=== PATIENT | male | born 1955 | race Caucasian/White ===

== ENCOUNTER 2017-08-08 11:15 | Inpatient (IN) | payer OTHER ==
[2017-08-05 15:10] LABS: WBC (NOT ORDERED) (RFLEX) 0 (0-5)
[2017-08-05 16:12] LABS: BASOPHILS 0.4 %; BASOPHILS ABSOLUTE 0.03 10/3/uL (0.0-0.16); EOSINOPHILS 2.4 %; EOSINOPHILS ABSOLUTE 0.19 10/3/uL (0.0-0.53); HEMOGLOBIN 14.8 g/dL (13.6-17.8); IMMATURE GRANULOCYTES 0.3 %; IMMATURE GRANULOCYTES ABSOLUTE 0.02 10/3/uL (0.0-0.11); LYMPHOCYTES 15.7 %; LYMPHOCYTES ABSOLUTE 1.22 10/3/uL (0.67-4.30); MEAN CORPUS HGB CONC 33.9 g/dL (32.0-36.0); MEAN CORPUSCULAR HEMOGLOB 30.1 pg (26.0-34.0); MEAN CORPUSCULAR VOLUME 88.6 fL (80-100); MEAN PLATELET VOLUME 10.3 fL (9.2-13.0); MONOCYTES 8.1 %; MONOCYTES ABSOLUTE 0.63 10/3/uL (0.21-1.20); NEUTROPHILS 73.1 %; NEUTROPHILS ABSOLUTE 5.68 10/3/uL (2.02-8.40); PLATELET COUNT 239 10/3/uL (150-400); RBC DISTRIBUTION WIDTH 13.1 % (12.0-16.0); RED CELL COUNT 4.92 10/6/uL (4.7-6.1); WHITE BLOOD CELLS 7.8 10/3/uL (4.5-10.5)
[2017-08-05 16:14] LABS: HEMATOCRIT 43.6 % (40.0-51.0); MANUAL DIFF NO %
[2017-08-05 16:26] LABS: BUN (BLOOD UREA NITROGEN) 18 MG/DL (6-23); CALCIUM, SERUM 8.5 MG/DL (8.5-10.4); CHLORIDE, SERUM 102 MMOL/L (96-112); CO2 (CARBON DIOXIDE) 29 MMOL/L (24-34); CREATININE 0.94 MG/DL (0.70-1.30); GFR AFRICAN AMERICAN 102 ML/MIN (>=60); GFR NON AFRICAN AMERICAN 88 ML/MIN (>=60); POTASSIUM, SERUM 4.1 MMOL/L (3.5-5.3); SODIUM, SERUM 137 MMOL/L (135-148)
[2017-08-05 16:27] LABS: GLUCOSE, SERUM 155 MG/DL (60-99)
[2017-08-05 16:49] LABS: ASCORBIC ACID (UR NOT ORDER) NEG (NEG); BILIRUBIN, URINE NEGATIVE (NEG); KETONE, URINE NEGATIVE (NEG); LEUKOCYTE ESTERASE(NOT OR NEG (NEG)
[~2017-08-08] VITALS: Ht 172.7 cm; Wt 103.4 kg
--- NOTE | ~2017-08-08 | OP ---
Record Of Operation [facility] [address] [place]. [address] NAME: JONATHAN COATES : 57 STATUS : ADM IN PAT#: [id number] AGE: 61 ADM/REG DATE : 08/11/17 MR#: [id number] REPORT SERV DATE: 08/11/17 DICTATED BY: JONNY DICKEY DATE: 08/11/17 REPORT STATUS : Draft TRANSCRIBED BY: MODL DATE: 08/11/17 DATE OF PROCEDURE: 08/11/2017 PREOPERATIVE DIAGNOSIS: Severe left internal carotid artery stenosis. POSTOPERATIVE DIAGNOSIS: High-grade left internal carotid artery stenosis. SURGERY PERFORMED: Left carotid endarterectomy with bovine patch angioplasty. JUNIOR NETWORK ADMINISTRATOR: Shivam. DESCRIPTION OF PROCEDURE: The patient was placed in general endotracheal anesthesia. Left neck and chest prepped and draped in a sterile fashion. An incision was made along the anterior border of the sternocleidomastoid muscle. This was carried through skin and subcutaneous tissue. Deep cervical fascia was opened. The facial vein was doubly ligated with silk and divided. The common carotid artery was dissected from surrounding tissue and encircled with vessel loops. Distally, the internal and external were dissected, the internal was encircled distally with a vessel loop. The XII nerve was seen and protected. The digastric muscle was retracted cephalad. He was given 5000 units of heparin. After an adequate period of time, the internal and external common carotid arteries were occluded. Arteriotomy was made in the common extended through the bulb into the internal. He was found to have a very high-grade stenosis of the internal, initially having difficulty finding the lumen with the Dalal scissors. This was accomplished, and a #10 Milam shunt placed without difficulty. Endarterectomy carried out with the [place] elevator. The plaque was cut sharply in the proximal position. The external done as an eversion, and the internal showed a relatively smooth step-off although this was tacked down with interrupted 6-0 Prolene suture. The opening in the vessel after irrigating with heparin was closed using a bovine patch which was sewn over with running 6-0 Prolene suture. Before this was completed, the shunt was removed, flushing carried out, patch completed, and flow released to the external and then to the internal carotid artery. Additional sutures were placed for hemostasis. A 7 flat BRUCE drain was brought out inferiorly and sutured to the skin with 3-0 Vicryl suture. The wound was then closed with 2-0 and 3-0 Vicryl for the deep tissue and platysma with skin closed with 4-0 Monocryl subcuticular stitch. Estimated blood loss 100 mL. He awoke from the operating room table, moving all four extremities. /MAKENZIE Jonny Dickey M.D. / [id number] CC: Jonny Dickey M.D.
[~2017-08-08 11:15] MED LIST: ALIGN4 MG PO; ALTA2.5 PO; ALTACE10 MG PO; APIDRA SC; ASA5GR PO; ASAB PO; BRILINTA90 MG PO; CYMBALTA60 PO; HUMULIN R1 ML SC; INSNOVR SC; LANTUS; LANTUS SC; LANTUSCART SC; LEVOTHROID125 MCG PO; LEVOTHROID50 MCG PO; LIPITOR40 PO; LOP50 PO; NASAL SPRAY NAS; NITROSTAT0.4 MG SL; NOVLOGPUMP SC; PROTONIX PO; TOUJEO SQ; TRUJEO SQ; VICTOZA18 MG/3 ML SC; ZANTAC300 MG PO
[2017-08-12 03:25] LABS: BASOPHILS 0.1 %; BASOPHILS ABSOLUTE 0.01 10/3/uL (0.0-0.16); EOSINOPHILS 0.1 %; EOSINOPHILS ABSOLUTE 0.01 10/3/uL (0.0-0.53); HEMATOCRIT 40.4 % (40.0-51.0); HEMOGLOBIN 13.5 g/dL (13.6-17.8); IMMATURE GRANULOCYTES 0.2 %; IMMATURE GRANULOCYTES ABSOLUTE 0.03 10/3/uL (0.0-0.11); LYMPHOCYTES 4.5 %; LYMPHOCYTES ABSOLUTE 0.59 10/3/uL (0.67-4.30); MANUAL DIFF NO %; MEAN CORPUS HGB CONC 33.4 g/dL (32.0-36.0); MEAN CORPUSCULAR HEMOGLOB 29.9 pg (26.0-34.0); MEAN CORPUSCULAR VOLUME 89.4 fL (80-100); MEAN PLATELET VOLUME 10.2 fL (9.2-13.0); MONOCYTES ABSOLUTE 0.53 10/3/uL (0.21-1.20); NEUTROPHILS 91.1 %; NEUTROPHILS ABSOLUTE 12.02 10/3/uL (2.02-8.40); PLATELET COUNT 200 10/3/uL (150-400); RBC DISTRIBUTION WIDTH 13.4 % (12.0-16.0); RED CELL COUNT 4.52 10/6/uL (4.7-6.1); WHITE BLOOD CELLS 13.2 10/3/uL (4.5-10.5)
[2017-08-12 03:35] LABS: BUN (BLOOD UREA NITROGEN) 16 MG/DL (6-23); CALCIUM, SERUM 7.5 MG/DL (8.5-10.4); CHLORIDE, SERUM 103 MMOL/L (96-112); CO2 (CARBON DIOXIDE) 25 MMOL/L (24-34); CREATININE 0.99 MG/DL (0.70-1.30); GFR AFRICAN AMERICAN 96 ML/MIN (>=60); GFR NON AFRICAN AMERICAN 82 ML/MIN (>=60); GLUCOSE, SERUM 263 MG/DL (60-99); POTASSIUM, SERUM 4.9 MMOL/L (3.5-5.3); SODIUM, SERUM 137 MMOL/L (135-148)
[2017-08-12] MEDS ORDERED: NORCO1 TA1 PO (10:48)
== END 2017-08-12 14:00 | disposition home or self-care (01) | DRG 39 ==
LOC: ENRESERV → ENRESERVDT → ENRESERVTM → CVICU 08-11 09:39 → SDC/OF 08-11 09:39 → CVICU 08-11 17:06
PROVIDERS: Surgery Vascular Surgery
PROC: 03CL0ZZ Extirpation of Matter from Left Internal Carotid Artery, Open Approach (ICD-10-PCS; 2017-08-11)
PROC: 03CN0ZZ Extirpation of Matter from Left External Carotid Artery, Open Approach (ICD-10-PCS; principal; 2017-08-11 11:30)
DX: I65.22 Occlusion and stenosis of left carotid artery (principal); I10 Essential (primary) hypertension; E11.9 Type 2 diabetes mellitus without complications; E66.9 Obesity, unspecified; Z68.34 Body mass index [BMI] 34.0-34.9, adult; I25.10 Atherosclerotic heart disease of native coronary artery without angina pectoris; Z95.5 Presence of coronary angioplasty implant and graft; Z79.899 Other long term (current) drug therapy
CPT/HCPCS: 71020; 80048; 81001; 82962; 85025; 87641; 88304; 88311; 93005; A9270-GY; C1768; J0690; J2250; J2270; J2370; J2405; J2710; J3010